=== PATIENT | male | born 1955 | race Caucasian/White ===

== ENCOUNTER → 2016-05-23 | Outpatient (CLI) | payer OTHER | LOC: BMCIMAGING 08:40 | PROVIDERS: ATTEND Orthopaedic Surgery | DX: M25.522 Pain in left elbow (principal); M25.722 Osteophyte, left elbow ==

== ENCOUNTER → 2016-07-25 | Outpatient (CLI) | payer OTHER | LOC: BMCIMAGING 14:27 | PROVIDERS: ATTEND Internal Medicine | DX: M79.672 Pain in left foot (principal); M79.89 Other specified soft tissue disorders ==

== ENCOUNTER → 2016-07-26 | Outpatient (CLI) | payer OTHER | LOC: FIMAGING 08:09 | PROVIDERS: ATTEND Internal Medicine | DX: M67.472 Ganglion, left ankle and foot (principal) ==

== ENCOUNTER → 2016-12-25 | Outpatient (CLI) | payer OTHER | LOC: BMCIMAGING 09:34 | PROVIDERS: ATTEND Orthopaedic Surgery Hand Surgery | DX: M19.012 Primary osteoarthritis, left shoulder (principal) ==